=== PATIENT | female | born 1980 | race Caucasian/White ===

== ENCOUNTER 2016-05-27 15:23 | Emergency (ER) | payer OTHER ==
[~2016-05-27] VITALS: Ht 165.1 cm; Wt 65.2 kg
[2016-05-27 15:28] VITALS: BP 132/90
[2016-05-27] MEDS ORDERED: NEURONTIN300 MG PO (16:33)
== END 2016-05-27 18:15 | disposition home or self-care (01) ==
LOC: EME 15:23
DX: H10.45 Other chronic allergic conjunctivitis (principal)
CPT/HCPCS: 99281; 99284

== ENCOUNTER 2016-08-04 06:07 | Emergency (ER) | payer OTHER ==
[~2016-08-04] VITALS: Ht 165.1 cm; Wt 66.8 kg
[~2016-08-04 06:07] MED LIST: NEURONTIN300 MG PO
[2016-08-04 06:55] LABS: EOSINOPHIL (%) 2.4 % (0-5); EOSINOPHIL COUNT 0.3 K/uL (0-0.3); HEMATOCRIT 38.5 % (36.0-46.0); IMMATURE GRANULOCYTE (%) 0.6 % (0.0-0.7); IMMATURE GRANULOCYTE COUNT 0.1 K/uL; LYMPHOCYTE COUNT 2.7 K/uL (1.0-2.8); MCH 31.5 PG (29.0-34.0); MCV 92.5 FL (83-99); MEAN PLAT.VOLUME 9.3 uM^3 (9.5-12.4); MONOCYTE (%) 4.4 % (3-12); MONOCYTE COUNT 0.5 K/uL (0-0.8); NEUTROPHIL (%) 69.4 % (45-76); PLATELET COUNT 280 K/uL (156-360); RBC DIS.WIDTH-CV 11.9 % (11.8-14.6); RBC DIS.WIDTH-SD 40.7 % (39-53); RED BLOOD COUNT 4.16 M/uL (3.80-5.20); WHITE BLOOD COUNT 11.6 K/uL (4.1-10.2)
[2016-08-04 07:43] LABS: QUANTITATIVE HCG < 4.0 MIU/ML
[2016-08-04 07:47] LABS: ALKALINE PHOSPHATASE 35 IU/L (3-129); ANION GAP 8 MEQ/L (2-14); CHLORIDE 109 MEQ/L (99-109); GFR ESTIMATE (CALCULATED) > 59 mL/min/; GLUCOSE 96 mg/dL (70-99); POTASSIUM 3.6 MEQ/L (3.7-5.4); SAMPLE HEMOLYSIS CHECK 0; SAMPLE ICTERIC CHECK 0; SAMPLE LIPEMIA CHECK 0; SODIUM 141 MEQ/L (136-147); TOTAL BILIRUBIN 0.2 MG/DL (0.0-1.0); TOTAL CK 4066 IU/L (1-294); UREA NITROGEN (BUN) 15 mg/dL (9-23)
[2016-08-04 07:52] LABS: CREATINE KINASE 4066 IU/L (1-294)
[2016-08-04 10:03] LABS: ADD MIUA? YES; BILIRUBIN NEGATIVE; BLOOD SMALL; COLOR STRAW ((YELLOW)); GLUCOSE (STRIP) NEGATIVE; KETONES 5; LEUKOCYTES NEGATIVE; NITRITE NEGATIVE; PROTEIN (STRIP) NEGATIVE; SPECIFIC GRAVITY 1.008 (1.000-1.030); UROBILINOGEN 0.2 MG/DL (0.2-1.0)
[2016-08-04 10:05] LABS: BACTERIA RARE /HPF; EPITHELIAL CELLS RARE /HPF; MUCUS TRACE /LPF; RED BLOOD CELLS 0-5 /HPF (0-5); UCUL ADDED? NO; WHITE BLOOD CELLS NONE SEEN /HPF (0-5)
[2016-08-04] MEDS ORDERED: ZOFRAN ODT4 MG PO (10:51)
[2016-08-04 10:53] VITALS: BP 120/80
== END 2016-08-04 10:54 | disposition left against medical advice (07) ==
LOC: EME 06:07
PROVIDERS: Emergency Medicine
DX: M62.82 Rhabdomyolysis (principal); E74.04 McArdle disease; F17.200 Nicotine dependence, unspecified, uncomplicated
CPT/HCPCS: 71020; 80053; 81003; 82550; 82553; 84702; 85025; 87651 90; 99281; 99284; J1885; J2270; J2405; J7030

== ENCOUNTER 2017-01-27 11:32 | Inpatient (IN) | payer OTHER ==
[~2017-01-27] VITALS: Ht 165.1 cm; Wt 70.6 kg
[~2017-01-27 11:32] MED LIST changes: +ZOFRAN ODT4 MG PO
[2017-01-27 14:13] LABS: EOSINOPHIL (%) 3.5 % (0-5); EOSINOPHIL COUNT 0.4 K/uL (0-0.3); HEMATOCRIT 39.6 % (36.0-46.0); IMMATURE GRANULOCYTE (%) 0.5 % (0.0-0.7); IMMATURE GRANULOCYTE COUNT 0.1 K/uL; INSTRUMENT ABS NEUTROPHIL CT 6.9 K/uL; LYMPHOCYTE COUNT 3.1 K/uL (1.0-2.8); MCH 31.7 PG (29.0-34.0); MCHC 33.6 G/DL (30.0-36.0); MCV 94.3 FL (83-99); MEAN PLAT.VOLUME 9.3 uM^3 (9.5-12.4); MONOCYTE COUNT 0.4 K/uL (0-0.8); NEUTROPHIL COUNT 6.9 K/uL (1.8-6.4); PLATELET COUNT 259 K/uL (156-360); RBC DIS.WIDTH-CV 12.6 % (11.8-14.6); RBC DIS.WIDTH-SD 43.8 % (39-53); WHITE BLOOD COUNT 10.9 K/uL (4.1-10.2)
[2017-01-27 14:24] LABS: CHLORIDE 106 mEq/L (99-109); POTASSIUM 4.5 mEq/L (3.7-5.4); SODIUM 137 mEq/L (136-147)
[2017-01-27 14:25] LABS: GLUCOSE 164 mg/dL (70-99)
[2017-01-27 14:27] LABS: ANION GAP 8 MEQ/L (2-14)
[2017-01-27 14:29] LABS: GFR ESTIMATE (CALCULATED) > 59 mL/min/
[2017-01-27 14:30] LABS: UREA NITROGEN (BUN) 16 mg/dL (9-23)
[2017-01-27 14:38] LABS: QUANTITATIVE HCG < 4.0 MIU/ML
[2017-01-27 14:44] LABS: CREATINE KINASE 7953 IU/L (1-294)
[2017-01-27 14:47] LABS: ADD MIUA? YES; BILIRUBIN NEGATIVE; BLOOD NEGATIVE; COLOR YELLOW ((YELLOW)); GLUCOSE (STRIP) NEGATIVE; KETONES NEGATIVE; LEUKOCYTES TRACE; NITRITE NEGATIVE; PROTEIN (STRIP) NEGATIVE; UROBILINOGEN 0.2 MG/DL (0.2-1.0)
[2017-01-27 14:56] LABS: BACTERIA RARE /HPF; EPITHELIAL CELLS 2+ /HPF; MUCUS TRACE /LPF; RED BLOOD CELLS 0-5 /HPF (0-5); WHITE BLOOD CELLS 0-5 /HPF (0-5)
[2017-01-27] MEDS ORDERED: ZOLPIDEM TARTRA10 MG PO (16:37)
[2017-01-27] MEDS ORDERED: BUSPAR7.5 MG PO (16:41)
[2017-01-27] MEDS ORDERED: ZYRTEC10 M3 PO (16:44)
[2017-01-27] MEDS ORDERED: ZANTAC300 MG PO (16:46)
[2017-01-28 00:32] VITALS: BP 130/85
[2017-01-28 08:06] VITALS: BP 117/81
[2017-01-28 11:53] LABS: TROP-I INTERPRETATION NEGATIVE; TROPONIN-I < 0.01 ng/mL (0.0-0.30)
[2017-01-28 16:25] VITALS: BP 150/93
[2017-01-28 18:42] LABS: TROP-I INTERPRETATION NEGATIVE; TROPONIN-I < 0.01 ng/mL (0.0-0.30)
[2017-01-28 23:56] LABS: TROP-I INTERPRETATION NEGATIVE; TROPONIN-I < 0.01 ng/mL (0.0-0.30)
[2017-01-29 00:03] VITALS: BP 123/74
[2017-01-29 04:08] VITALS: BP 109/75
[2017-01-29 06:24] LABS: HEMATOCRIT 34.7 % (36.0-46.0); MCH 31.4 PG (29.0-34.0); MCHC 33.4 G/DL (30.0-36.0); MEAN PLAT.VOLUME 9.4 uM^3 (9.5-12.4); PLATELET COUNT 224 K/uL (156-360); RBC DIS.WIDTH-CV 12.5 % (11.8-14.6); RBC DIS.WIDTH-SD 43.3 % (39-53); RED BLOOD COUNT 3.69 M/uL (3.80-5.20); WHITE BLOOD COUNT 10.1 K/uL (4.1-10.2)
[2017-01-29 06:54] LABS: ANION GAP 5 MEQ/L (2-14); CHLORIDE 108 MEQ/L (99-109); GFR ESTIMATE (CALCULATED) > 59 mL/min/; POTASSIUM 4.1 MEQ/L (3.7-5.4); SAMPLE HEMOLYSIS CHECK 0; SAMPLE ICTERIC CHECK 0; SAMPLE LIPEMIA CHECK 0; SODIUM 139 MEQ/L (136-147); UREA NITROGEN (BUN) 12 mg/dL (9-23)
[2017-01-29 06:58] LABS: CREATINE KINASE 1555 IU/L (1-294); GLUCOSE 81 mg/dL (70-99)
[2017-01-29 08:00] VITALS: BP 122/89
[2017-01-29] MEDS ORDERED: ACETAMINOPHEN-1 EAC1 PO (11:16)
[2017-01-29 12:00] VITALS: BP 127/88
[2017-01-29 13:34] VITALS: BP 122/89
== END 2017-01-29 14:38 | disposition home or self-care (01) | DRG 558 ==
LOC: EME 11:32 → EDOF 15:41 → 5SOUTH 15:41 → ENRESERV 15:44 → 5SOUTH 18:01 → ENPENDDIS 01-29 → 5SOUTH 01-29 14:38
PROVIDERS: Physician Assistant Medical
DX: M62.82 Rhabdomyolysis (principal); E74.04 McArdle disease; J98.11 Atelectasis; M54.9 Dorsalgia, unspecified; M79.606 Pain in leg, unspecified; R07.89 Other chest pain; F17.210 Nicotine dependence, cigarettes, uncomplicated; Z87.01 Personal history of pneumonia (recurrent)
CPT/HCPCS: 71020; 80048; 81003; 82550; 84484; 84702; 85025; 85027; 93005; 99281; 99285; J1170; J1650; J2270; J2405; J7030

== ENCOUNTER 2017-05-07 14:25 | Inpatient (IN) | payer OTHER ==
[~2017-05-07] VITALS: Ht 165.1 cm; Wt 71.3 kg
[~2017-05-07 14:25] MED LIST changes: +ACETAMINOPHEN-1 EAC1 PO; +BUSPAR7.5 MG PO; +ZANTAC300 MG PO; +ZOLPIDEM TARTRA10 MG PO; +ZYRTEC10 M3 PO
[2017-05-07 15:10] LABS: APPEARANCE CLEAR ((CLEAR)); BILIRUBIN NEGATIVE; BLOOD SMALL; COLOR YELLOW ((YELLOW)); GLUCOSE (STRIP) NEGATIVE; KETONES NEGATIVE; LEUKOCYTES NEGATIVE; NITRITE NEGATIVE; PROTEIN (STRIP) NEGATIVE; SPECIFIC GRAVITY 1.013 (1.000-1.030); UROBILINOGEN 0.2 MG/DL (0.2-1.0)
[2017-05-07 15:19] LABS: HEMATOCRIT 36.9 % (36.0-46.0); HEMOGLOBIN 12.5 G/DL (11.9-15.5); MCH 31.4 PG (29.0-34.0); MCHC 33.9 G/DL (30.0-36.0); MCV 92.7 FL (83-99); PLATELET COUNT 321 K/uL (156-360); RBC DIS.WIDTH-CV 12.2 % (11.8-14.6); RBC DIS.WIDTH-SD 41.4 % (39-53); RED BLOOD COUNT 3.98 M/uL (3.80-5.20); WHITE BLOOD COUNT 11.6 K/uL (4.1-10.2)
[2017-05-07 15:27] LABS: BACTERIA RARE /HPF; EPITHELIAL CELLS 3+ /HPF; MUCUS TRACE /LPF; UCUL ADDED? NO; WHITE BLOOD CELLS 0-5 /HPF (0-5)
[2017-05-07 15:32] LABS: ALBUMIN 4.3 g/dL (3.2-4.8); CHLORIDE 104 mEq/L (99-109); POTASSIUM 4.3 mEq/L (3.7-5.4); SODIUM 138 mEq/L (136-147)
[2017-05-07 15:34] LABS: GLUCOSE 99 mg/dL (70-99); TOTAL PROTEIN 7.4 g/dL (6.4-8.3)
[2017-05-07 15:36] LABS: TOTAL BILIRUBIN 0.2 mg/dL (0.0-1.0)
[2017-05-07 15:38] LABS: ALKALINE PHOSPHATASE 42 IU/L (3-129); CREATININE 0.7 mg/dL (0.6-1.3); GFR ESTIMATE (CALCULATED) > 59 mL/min/
[2017-05-07 15:39] LABS: UREA NITROGEN (BUN) 12 mg/dL (9-23)
[2017-05-07 15:40] LABS: AST (GOT) 147 IU/L (2-34)
[2017-05-07 15:41] LABS: ALT (GPT) 132 IU/L (3-49)
[2017-05-07 15:50] LABS: QUANTITATIVE HCG < 4.0 MIU/ML
[2017-05-07] MEDS ORDERED: TYLENOL EXTRA500 MG PO (17:35)
[2017-05-07] MEDS ORDERED: ONE DAILY1 EAC3 PO (17:35)
[2017-05-07] MEDS ORDERED: FLEXERIL10 MG PO (17:35)
[2017-05-07 19:37] LABS: CREATINE KINASE 32050 IU/L (1-294)
[2017-05-07 22:52] VITALS: BP 118/74
[2017-05-08 00:31] VITALS: BP 108/74
[2017-05-08 01:03] LABS: CK-MB 19.7 ng/mL (0.0-4.9)
[2017-05-08 01:46] LABS: CKMB RELATIVE INDEX 0.1 (0.0-3.9); CREATINE KINASE 15844 IU/L (1-294); TOTAL CK 15844 IU/L (1-294)
[2017-05-08 06:49] LABS: TROP-I INTERPRETATION NEGATIVE; TROPONIN-I < 0.01 ng/mL (0.0-0.30)
[2017-05-08 07:16] LABS: TOTAL CK 14853 IU/L (1-294)
[2017-05-08 07:24] LABS: CREATINE KINASE 14853 IU/L (1-294)
[2017-05-08 07:25] VITALS: BP 114/68
[2017-05-08 07:32] LABS: CKMB RELATIVE INDEX 0.1 (0.0-3.9)
[2017-05-08 07:34] LABS: CK-MB 17.9 ng/mL (0.0-4.9)
[2017-05-08 15:35] VITALS: BP 119/74
[2017-05-08 16:12] LABS: HEMATOCRIT 35.7 % (36.0-46.0); HEMOGLOBIN 11.9 G/DL (11.9-15.5); MCH 31.5 PG (29.0-34.0); MCHC 33.3 G/DL (30.0-36.0); MCV 94.4 FL (83-99); PLATELET COUNT 304 K/uL (156-360); RBC DIS.WIDTH-CV 12.1 % (11.8-14.6); RBC DIS.WIDTH-SD 42.3 % (39-53); RED BLOOD COUNT 3.78 M/uL (3.80-5.20); WHITE BLOOD COUNT 11.4 K/uL (4.1-10.2)
[2017-05-08 16:32] LABS: TROP-I INTERPRETATION NEGATIVE; TROPONIN-I < 0.01 ng/mL (0.0-0.30)
[2017-05-08 16:51] LABS: CHLORIDE 103 MEQ/L (99-109); CREATININE 0.7 MG/DL (0.6-1.3); GFR ESTIMATE (CALCULATED) > 59 mL/min/; GLUCOSE 98 mg/dL (70-99); POTASSIUM 4.6 MEQ/L (3.7-5.4); SODIUM 136 MEQ/L (136-147); TOTAL CK 13803 IU/L (1-294); UREA NITROGEN (BUN) 9 mg/dL (9-23)
[2017-05-08 16:55] LABS: CREATINE KINASE 13803 IU/L (1-294)
[2017-05-08 17:09] LABS: CKMB RELATIVE INDEX 0.1 (0.0-3.9)
[2017-05-08 17:11] LABS: CK-MB 15.3 ng/mL (0.0-4.9)
[2017-05-08 23:54] VITALS: BP 133/84
[2017-05-09 06:57] LABS: HEMATOCRIT 32.7 % (36.0-46.0); HEMOGLOBIN 10.9 G/DL (11.9-15.5); MCH 31.1 PG (29.0-34.0); MCHC 33.3 G/DL (30.0-36.0); MCV 93.4 FL (83-99); PLATELET COUNT 264 K/uL (156-360); RBC DIS.WIDTH-CV 11.8 % (11.8-14.6); RBC DIS.WIDTH-SD 40.3 % (39-53); WHITE BLOOD COUNT 9.4 K/uL (4.1-10.2)
[2017-05-09 07:15] LABS: CHLORIDE 106 MEQ/L (99-109); CREATININE 0.6 MG/DL (0.6-1.3); GFR ESTIMATE (CALCULATED) > 59 mL/min/; GLUCOSE 85 mg/dL (70-99); POTASSIUM 4.1 MEQ/L (3.7-5.4); SODIUM 138 MEQ/L (136-147); UREA NITROGEN (BUN) 6 mg/dL (9-23)
[2017-05-09 07:45] VITALS: BP 123/76
[2017-05-09 07:47] LABS: CREATINE KINASE 7527 IU/L (1-294)
[2017-05-09] MEDS ORDERED: ZOFRAN4 MG PO (10:45)
[2017-05-09] MEDS ORDERED: OXYCODONE HCL10 MG PO (10:45)
[2017-05-09 12:33] VITALS: BP 110/68
== END 2017-05-09 15:46 | disposition home or self-care (01) | DRG 558 ==
LOC: EME 14:25 → EDOF 16:58 → ENRESERV 16:59 → 5EAST 17:15 → EDOF 17:15 → ENRESERV 17:16 → 5EAST 18:58
PROVIDERS: Hospitalist; Internal Medicine
DX: M62.82 Rhabdomyolysis (principal); R07.9 Chest pain, unspecified; G89.29 Other chronic pain; E74.04 McArdle disease; G47.00 Insomnia, unspecified; F17.200 Nicotine dependence, unspecified, uncomplicated
CPT/HCPCS: 71045; 72148; 80048; 80053; 81003; 82550; 82550 91; 82553; 83880; 84484; 84702; 85027; 93005; 99281; 99285; J1170; J2405; J7030; J7050

== ENCOUNTER 2017-05-28 15:11 | Emergency (ER) | payer OTHER ==
[~2017-05-28] VITALS: Ht 165.1 cm; Wt 70.7 kg
[~2017-05-28 15:11] MED LIST changes: +FLEXERIL10 MG PO; +ONE DAILY1 EAC3 PO; +OXYCODONE HCL10 MG PO; +TYLENOL EXTRA500 MG PO; +ZOFRAN4 MG PO
[2017-05-28 15:43] LABS: HEMATOCRIT 38.7 % (36.0-46.0); HEMOGLOBIN 13.4 G/DL (11.9-15.5); MCH 32.3 PG (29.0-34.0); MCHC 34.6 G/DL (30.0-36.0); MCV 93.3 FL (83-99); PLATELET COUNT 359 K/uL (156-360); RBC DIS.WIDTH-CV 12.2 % (11.8-14.6); RBC DIS.WIDTH-SD 41.8 % (39-53); RED BLOOD COUNT 4.15 M/uL (3.80-5.20); WHITE BLOOD COUNT 12.4 K/uL (4.1-10.2)
[2017-05-28 15:48] LABS: CHLORIDE 101 mEq/L (99-109); POTASSIUM 4.1 mEq/L (3.7-5.4); SODIUM 138 mEq/L (136-147)
[2017-05-28 15:49] LABS: GLUCOSE 135 mg/dL (70-99)
[2017-05-28 15:53] LABS: CREATININE 0.8 mg/dL (0.6-1.3); GFR ESTIMATE (CALCULATED) > 59 mL/min/
[2017-05-28 15:54] LABS: UREA NITROGEN (BUN) 13 mg/dL (9-23)
[2017-05-28 16:00] LABS: TROP-I INTERPRETATION NEGATIVE; TROPONIN-I < 0.01 ng/mL (0.0-0.30)
[2017-05-28 16:02] LABS: QUANTITATIVE HCG < 4.0 MIU/ML
[2017-05-28 16:03] LABS: CK-MB 17.6 ng/mL (0.0-4.9)
[2017-05-28 16:07] LABS: CKMB RELATIVE INDEX 0.2 (0.0-3.9); TOTAL CK 9041 IU/L (1-294)
[2017-05-28 16:08] LABS: CREATINE KINASE 9041 IU/L (1-294)
[2017-05-28 19:32] VITALS: BP 125/81
== END 2017-05-28 19:32 | disposition home or self-care (01) ==
LOC: EME 15:11
DX: M62.82 Rhabdomyolysis (principal); R00.0 Tachycardia, unspecified; R94.31 Abnormal electrocardiogram [ECG] [EKG]; J98.11 Atelectasis; L40.9 Psoriasis, unspecified; F41.9 Anxiety disorder, unspecified; F17.200 Nicotine dependence, unspecified, uncomplicated; Z87.39 Personal history of other diseases of the musculoskeletal system and connective tissue; Z98.890 Other specified postprocedural states; Z90.49 Acquired absence of other specified parts of digestive tract; Z88.8 Allergy status to other drugs, medicaments and biological substances; Z88.0 Allergy status to penicillin
CPT/HCPCS: 71046; 80048; 82550; 82553; 84484; 84702; 85027; 93005; 99281; 99285; J3010; J7030

== ENCOUNTER 2017-10-09 11:38 | Emergency (ER) | payer OTHER ==
[~2017-10-09] VITALS: Ht 165.1 cm; Wt 72.0 kg
[2017-10-09 12:09] LABS: HEMOGLOBIN 14.2 G/DL (11.9-15.5); MCH 31.6 PG (29.0-34.0); MCHC 33.8 G/DL (30.0-36.0); MCV 93.5 FL (83-99); PLATELET COUNT 314 K/uL (156-360); RBC DIS.WIDTH-CV 12.2 % (11.8-14.6); RBC DIS.WIDTH-SD 42.3 % (39-53); RED BLOOD COUNT 4.49 M/uL (3.80-5.20); WHITE BLOOD COUNT 12.8 K/uL (4.1-10.2)
[2017-10-09 12:21] LABS: ALBUMIN 4.7 g/dL (3.2-4.8); CHLORIDE 104 mEq/L (99-109); POTASSIUM 3.9 mEq/L (3.7-5.4); SODIUM 138 mEq/L (136-147)
[2017-10-09 12:23] LABS: GLUCOSE 85 mg/dL (70-99)
[2017-10-09 12:24] LABS: TOTAL PROTEIN 8.2 g/dL (6.4-8.3)
[2017-10-09 12:25] LABS: TOTAL BILIRUBIN 0.3 mg/dL (0.0-1.0)
[2017-10-09 12:27] LABS: ALKALINE PHOSPHATASE 56 IU/L (3-129); CREATININE 0.8 mg/dL (0.6-1.3); GFR ESTIMATE (CALCULATED) > 59 mL/min/
[2017-10-09 12:28] LABS: UREA NITROGEN (BUN) 10 mg/dL (9-23)
[2017-10-09 12:29] LABS: AST (GOT) 44 IU/L (2-34)
[2017-10-09 12:30] LABS: ALT (GPT) 106 IU/L (3-49)
[2017-10-09 12:37] LABS: APPEARANCE CLEAR ((CLEAR)); BILIRUBIN NEGATIVE; BLOOD SMALL; COLOR YELLOW ((YELLOW)); GLUCOSE (STRIP) NEGATIVE; KETONES NEGATIVE; LEUKOCYTES NEGATIVE; NITRITE NEGATIVE; PROTEIN (STRIP) NEGATIVE; SPECIFIC GRAVITY 1.009 (1.000-1.030); UROBILINOGEN 0.2 MG/DL (0.2-1.0)
[2017-10-09 12:38] LABS: QUANTITATIVE HCG < 4.0 MIU/ML
[2017-10-09 12:45] LABS: BACTERIA RARE /HPF; EPITHELIAL CELLS RARE /HPF; MUCUS TRACE /LPF; RED BLOOD CELLS 0-5 /HPF (0-5); UCUL ADDED? NO; WHITE BLOOD CELLS 0-5 /HPF (0-5)
[2017-10-09 13:09] LABS: LIPASE 45 U/L (1.0-51.0)
[2017-10-09 13:10] LABS: CREATINE KINASE 2263 IU/L (1-294)
[2017-10-09] MEDS ORDERED: ZOFRAN ODT4 MG PO (14:31)
[2017-10-09 14:47] VITALS: BP 127/74
== END 2017-10-09 14:48 | disposition home or self-care (01) ==
LOC: EME 11:38
DX: R11.2 Nausea with vomiting, unspecified (principal); R19.7 Diarrhea, unspecified; R79.89 Other specified abnormal findings of blood chemistry; L40.9 Psoriasis, unspecified; F41.9 Anxiety disorder, unspecified; E74.04 McArdle disease; F17.200 Nicotine dependence, unspecified, uncomplicated; Z90.49 Acquired absence of other specified parts of digestive tract; Z88.0 Allergy status to penicillin; Z88.8 Allergy status to other drugs, medicaments and biological substances
CPT/HCPCS: 80053; 81003; 82550; 83690; 84702; 85027; 87493; 87506; 99281; 99285; J2405; J7030